=== PATIENT | female | born 2005 | race Two or more races ===

== ENCOUNTER 2024-06-14 18:08 | Emergency (ER) | payer MEDICAID, SELFPAY ==
[2024-06-14 18:11] VITALS: BP 108/71; PULSE 80; RESP 18; TEMP 37.6; O2SAT 96; BMI 17.5
--- NOTE | 2024-06-14 18:23 | PD.EDAMS ---
Altered Mental Status RME/HPI General Chief Complaint: Shortness of Breath/Dyspnea Stated Complaint: SUDDEN SOB Time Seen by Provider: 06/14/24 18:23 Arrival date/time: 06/14/24 18:08 RME / HPI RME / HPI narrative: This section includes all my notes and documentations, including HPI, PE, and ED course. Ferny Ballesteros MD HPI: 19-year-old female here to be evaluated with many concerns. She has cerebral palsy. Mom takes care of her at home. Mom reports increased confusion and fatigue and malaise for the past few days. Just prior to arrival, mom noted hypoxia. No obvious fever. Slight cough. No other complaints. ROS: All negative except as documented in HPI. Physical Exam: General: Alert. No acute distress when remaining still. Eyes: Conjunctivae and lids clear. EOMI. PERRL. ENT: No nasal congestion. Pharynx normal. Tympanic membrane normal bilaterally. Neck: Supple. Heart: RRR. Lungs: No respiratory distress. Good air movement with rales. Abdomen: Soft and nontender. Skin: Warm and dry. Neuro: Alert. Cranial Nerves II-XII grossly intact. No peripheral motor deficits. I reviewed all diagnostic test results. My interpretation of the EKG is sinus rhythm with no acute ST?T changes. My interpretation of the chest x-ray is bilateral infiltrates. Blood tests unremarkable. At this point, diagnoses include pneumonia. Treatment here included IV fluid, Toradol, Tylenol, Rocephin, and Zithromax. Significant improvement noted. Recommended a trial of treatment at home. Based on my best medical judgment, made decision no further evaluation or treatment indicated at this time. Patient (and mom) understands and agrees to the discharge instructions customized and printed, see below. Discharge instructions from Dr. Ballesteros: --Chelle has pneumonia. ?No exposure to smoking or pets or dust or cold or humidity. --Zithromax and cefdinir to kill the germs causing the pneumonia. --Prednisone to help decrease the swelling in the airways. --Tylenol and ibuprofen as needed. --See a private doctor next week if not completely better. --Seek immediate medical care with worsening or with any concerns. Ferny Ballesteros MD Related Data Home Medications ?Medication ?Instructions ?Recorded ?Confirmed albuterol sulfate 2.5 mg/3 mL 2.5 mg HHN QDAY #0 ea 05/29/14 (0.083 %) solution for nebulization budesonide 0.5 mg/2 mL suspension HHN QDAY #0 neb 05/29/14 for nebulization (Pulmicort) Previous Rx's ?Medication ?Instructions ?Recorded ibuprofen 100 mg/5 mL oral 300 mg (15 mL) PO Q6H #250 mL 09/03/20 suspension azithromycin 200 mg/5 mL oral 400 mg (10 mL) PO QDAY 3 days #30 06/14/24 suspension (Zithromax) mL cefdinir 125 mg/5 mL oral 300 mg (12 mL) PO BID 7 days #168 06/14/24 suspension mL prednisolone 15 mg/5 mL oral 45 mg (15 mL) PO DAILY 3 days #45 06/14/24 solution mL Allergies Allergy/AdvReac Type Severity Reaction Status Date / Time acetazolamide Allergy Unknown Verified 09/03/20 22:16 Course Quality Measures none Orders Category Date Time Status Bedside COVID-19 Antigen Test NOW Care 06/14/24 18:26 Completed Bedside Influenza A&B Antigen Test NOW Care 06/14/24 18:26 Completed EKG (ED ONLY) *Do not use* NOW Care 06/14/24 18:29 Completed Miscellaneous Nursing Order NOW Care 06/14/24 18:26 Completed Saline [Insert IV] NOW Care 06/14/24 18:26 Completed Straight [In and Out Catheter] X1 Care 06/14/24 18:26 Completed EKG (ED Only) Stat Exams 06/14/24 18:29 Draft XR chest 1V portable Stat Exams 06/14/24 18:29 Completed ABG [Arterial Blood Gas] Stat Lab 06/14/24 18:50 Completed BNP [B-Type Natriuretic Peptide] Stat Lab 06/14/24 19:07 Completed Blood Culture (Lab) Stat Lab 06/14/24 19:00 Received CBC Stat Lab 06/14/24 19:07 Completed CMP [Comprehensive Metabolic Panel] Stat Lab 06/14/24 19:07 Completed CRP [C-Reactive Protein] Stat Lab 06/14/24 19:07 Completed D-Dimer Stat Lab 06/14/24 19:07 Completed ESR [Sed Rate (ESR)] Stat Lab 06/14/24 19:07 Completed Free T4 (Free Thyroxine) Stat Lab 06/14/24 19:07 Completed Lactate (Lactic Acid) Stat Lab 06/14/24 19:07 Completed Magnesium Stat Lab 06/14/24 19:07 Completed Procalcitonin Stat Lab 06/14/24 19:07 Completed TSH [Thyroid Stimulating Hormone] Stat Lab 06/14/24 19:07 Completed Troponin I Stat Lab 06/14/24 19:07 Completed Acetaminophen Ivpb [Ofirmev Inj] Med 06/14/24 18:28 Discontinued 1,000 mg in 100 ml IV X1 Acetaminophen Ivpb [Ofirmev Inj] Med 06/15/24 00:00 Discontinued 1,000 mg in 60 ml IV Q6HR Azithromycin Inj [Zithromax Inj] 400 mg Med 06/14/24 20:15 Discontinued Sodium Chloride 0.9% 250 ml [Ns] 250 ml IV X1 Ketorolac Inj [Toradol Inj] Med 06/14/24 18:26 Discontinued 15 mg IVP X1 ONE Ketorolac Inj [Toradol Inj] Med 06/14/24 20:15 Discontinued 15 mg IVP X1 ONE Sodium Chloride 0.9% 1000 ml [Ns] 1,000 ml Med 06/14/24 18:26 Discontinued IV 999 mls/hr cefTRIAXone [Rocephin] 1,000 mg Med 06/14/24 18:26 Discontinued SODIUM CHLORIDE 0.9% (Popper) [Ns 0.9% (P)] 50 ml IV X1 Vital Signs Vital signs: Vital Signs Temperature 99.6 F 06/14/24 18:11 Pulse Rate 80 06/14/24 18:11 Respiratory Rate 18 06/14/24 18:11 Blood Pressure 108/71 06/14/24 18:11 Pulse Oximetry (%) 96 06/14/24 18:11 Oxygen Delivery Method Room Air 06/14/24 18:11 Altered Mental Status Patient data External records reviewed:: [facility] previous records Clinical information provided by:: patient, EMS and parent Social determinants that could affect healthcare access:: other (specify) (Cerebral palsy) Patient has the following chronic illnesses:: Cerebral palsy How is presenting disease/condition affected by chronic disease/condition?: exacerbated by Evaluation data The following diagnostics were reviewed and interpreted by me:: lab results, radiology exam(s) and EKG tracing(s) Lab and/or radiology exams considered but not ordered:: None Interpretation Summary: Pneumonia Medications / Prescriptions Medications or Prescriptions considered but not ordered:: None Medication administrations:: Medication Administration History Discontinued Medications Acetaminophen (Ofirmev Inj) 1,000 mg in 100 mls @ 250 mls/hr IV X1 ONE Stop: 06/14/24 18:51 Last Admin: 06/14/24 19:50 Dose: Not Given Documented By: PINOR Non-Admin Reason: Discontinued Ceftriaxone Sodium 1,000 mg/ (Sodium Chloride) 50 mls @ 100 mls/hr IV X1 ONE Stop: 06/14/24 18:55 Last Admin: 06/14/24 19:50 Dose: Not Given Documented By: PINOR Non-Admin Reason: Discontinued Sodium Chloride (Ns) 1,000 mls @ 999 mls/hr IV .Q1H1M ONE Stop: 06/14/24 19:26 Last Infusion: 06/14/24 21:04 Dose: Infused Documented By: Admin: 06/14/24 20:03 Dose: 999 mls/hr Documented By: ANNA Azithromycin 400 mg/ Sodium (Chloride) 250 mls @ 250 mls/hr IV X1 ONE Stop: 06/14/24 21:14 Last Admin: 06/14/24 21:22 Dose: 250 mls/hr Documented By: ANNA Acetaminophen (Ofirmev Inj) 1,000 mg in 60 mls @ 150 mls/hr IV Q6HR JOJO Stop: 06/15/24 18:23 Ketorolac Tromethamine (Ketorolac Inj 30 Mg/Ml Vial) 15 mg IVP X1 ONE Stop: 06/14/24 18:27 Last Admin: 06/14/24 19:50 Dose: Not Given Documented By: PINOR Non-Admin Reason: Discontinued Ketorolac Tromethamine (Ketorolac Inj 30 Mg/Ml Vial) 15 mg IVP X1 ONE Stop: 06/14/24 20:16 Last Admin: 06/14/24 22:03 Dose: 15 mg Documented By: DIAN IV fluid, Toradol, Tylenol, Rocephin, and Zithromax Consultations Consultation(s) initiated? (list below): No Diagnosis Differential diagnosis altered mental status: delirium, hypoglycemia, hyponatremia, sepsis and other (UTI, pneumonia, COVID, influenza) Most likely diagnosis given after review of the tests above:: Pneumonia Admission Indicated Admission indicated?: not indicated Explain why admission is indicated or not indicated:: With significant improvement, there was no indication for admission. Admission Request Was there a request for admission?: No Disposition Plan Disposition Plan: Discharge Discharge Attestation Discharge Attestation: The patient and all family members were given an opportunity to ask questions and understood the discharge instructions. Discharge instructions specifically effects, indications for sooner follow up or return to the emergency department, and the expected course of current diagnosis. Patient condition: Stable Discharge Plan Plan Patient Disposition: HOME (Self Care) Prescriptions/Referrals Prescriptions/Med Rec: New cefdinir 125 mg/5 mL suspension for reconstitution 300 mg PO BID 7 Days Qty: 168 0RF prednisolone 15 mg/5 mL solution 45 mg PO DAILY 3 Days Qty: 45 0RF azithromycin [Zithromax] 200 mg/5 mL suspension for reconstitution 400 mg PO QDAY 3 Days Qty: 30 0RF No Action albuterol sulfate 2.5 MG/3 ML solution for nebulization 2.5 mg HHN QDAY Qty: 0 budesonide [Pulmicort] 0.5 MG/2 ML suspension for nebulization HHN QDAY Qty: 0 ibuprofen 100 mg/5 mL suspension 300 mg PO Q6H Qty: 250 0RF Referrals: Sharon Samuel MD [Primary Care Provider] - In 1 week Problem List Clinical Impression: Community acquired pneumonia Patient/Caregiver Discharge Instructions Discharge Activity: activity as tolerated Education Materials: ED Pneumonia (Adult) Additional Instructions: Discharge instructions from Dr. Ballesteros: --Chelle has pneumonia. ?No exposure to smoking or pets or dust or cold or humidity. --Zithromax and cefdinir to kill the germs causing the pneumonia. --Prednisone to help decrease the swelling in the airways. --Tylenol and ibuprofen as needed. --See a private doctor next week if not completely better. --Seek immediate medical care with worsening or with any concerns. Print Language: Vietnamese Stand Alone Forms: Della Award Info., Patient Portal Info Letter
--- NOTE | 2024-06-14 18:29 | XR_ITS ---
Examination: AP chest single view Technique: AP supine portable chest single view Exam date and time: June 14, 2024 at 1853 hrs. Indications: Onset SOB today. Findings: Early bilateral perihilar pneumonia The film is rotated RPO Normal heart size Right ventricular peritoneal shunt tube Impression: Bilateral perihilar pneumonia
--- NOTE | 2024-06-14 18:29 | EKG_ITS ---
[facility] Test Date: 2024-06-14 Pat Name: CHAVA ALEX Department: Room: - Gender: Female Bronc Buster: : 2005 Requested By: Ferny Verduzco Order Number: [id number] Reading MD: Ferny Verduzco Measurements Intervals [place] Rate: 90 P: 41 RI: 157 QRS: 54 QRSD: 77 T: 32 QT: 355 QTc: 435 Interpretive Statements SINUS RHYTHM No previous ECG available for comparison /[id number]/S0/[id number]
[2024-06-14 18:35] VITALS: TEMP 37.1
[2024-06-14 18:54] LABS: Base Excess 3 (-3-3); HCO3 28 mEq/L (20-26); Inspired O2, VO2 Liters 2 L/min; Inspired Oxygen, FIO2 21 %; O2 Saturation 98 % (91-98); PCO2 44 mmHg (32.0-48.0); PO2 89 mmHg (83-108); pH, Arterial 7.42 (7.35-7.45)
[2024-06-14 18:57] VITALS: PULSE 92; RESP 20; O2SAT 94
[2024-06-14 18:57] LABS: Allen Test Performed/OK; Puncture Site Right Radial
[2024-06-14 19:12] LABS: Lactate (Lactic Acid) 0.7 mMol/L (0.4-2.0)
[2024-06-14 19:13] LABS: Basophils % (Auto) 0 % (0-2.5); Eosinophils % (Auto) 0 % (0-10); Hematocrit 34.4 % (36.0-46.0); Hemoglobin 10.6 g/dL (12.0-16.0); Immature Granulocytes % (Auto) 0 % (0-0); Immature Granulocytes Auto 0.01 Thou/mm3 (0.00-0.00); Lymphocytes # (Auto) 1.4 Thou/mm3 (1.0-4.8); Lymphocytes % (Auto) 22 % (10-50); Mean Corpuscular HGB Conc 30.8 g/dl (31.0-37.0); Mean Corpuscular Volume 78 fL (80-100); Monocytes # (Auto) 0.5 Thou/mm3 (0.0-0.8); Monocytes % (Auto) 8 % (0-12); Neutrophils # (Auto) 4.3 Thou/mm3 (1.8-7.7); Neutrophils % (Auto) 70 % (37-80); Nucleated Red Blood Cell % 0 /100 WBC (0); Platelet Count 185 Thou/mm3 (140-440); RDW Standard Deviation 43.8 fL (36.4-46.3); Red Blood Count 4.42 Miln/mm3 (4.00-5.20); White Blood Count 6.2 Thou/mm3 (3.6-11.0)
[2024-06-14 19:38] LABS: Sed Rate (ESR) 18 mm/hr (0-20)
[2024-06-14 19:43] LABS: B-Type Natriuretic Peptide < 20 pg/mL (0-100)
[2024-06-14 19:51] LABS: D-Dimer < 250 ng/mL (<600)
[2024-06-14] MEDS: SODIUM CHLORIDE 0.9% 1000 ML 1,000 ML 999 ML IV (20:03)
[2024-06-14 20:09] VITALS: BP 110/54; PULSE 94; RESP 17; O2SAT 95
[2024-06-14 21:22] LABS: Alanine Aminotransferase 14 U/L (10-49); Albumin, Serum 4.3 gm/dL (3.5-5.0); Albumin/Globulin Ratio 1.7 (1.2-2.2); Alkaline Phosphatase 123 U/L (46-116); Anion Gap 7 (7-16); Aspartate Amino Transferase 20 U/L (0-34); BUN/Creatinine Ratio 20 Ratio (12-20); Bilirubin,Total 0.3 mg/dL (0.3-1.2); Blood Urea Nitrogen 8 mg/dL (9-23); C-Reactive Protein < 0.5 mg/dL (0.0-0.9); Calcium 8.8 mg/dL (8.3-10.6); Calcium (Corrected) 8.8 mg/dL (8.5-10.1); Chloride 103 mMol/L (98-107); Creatinine (Component) 0.4 mg/dL (0.6-1.3); Estimated Creatinine Clearance 138.6 mL/min (>60); Free T4 (Free Thyroxine) 0.79 ng/dL (0.89-1.76); Globulin 2.6 gm/dL (2.3-3.5); Glucose 89 mg/dL (74-106); Osmolality,Calculated 269 (275-295); Potassium 4.2 mMol/L (3.4-5.1); Procalcitonin 0.06 ng/ml (0.0-0.49); Sodium 136 mMol/L (136-145); Thyroid Stimulating Hormone 0.46 uIU/mL (0.55-4.78); Total Protein 6.9 gm/dL (5.7-8.2); Troponin I < 0.002 ng/mL (0.0-0.045); eGFR > 60 See Note
[2024-06-14] MEDS: SODIUM CHLORIDE 0.9% IV (21:22)
[2024-06-14] MEDS: AZITHROMYCIN IV (21:22)
[2024-06-14] MEDS: KETOROLAC INJ 30 MG/ML VIAL 15 MG IVP (22:03)
[2024-06-14 22:23] VITALS: BP 103/71; PULSE 84; RESP 16; O2SAT 97
== END 2024-06-14 22:25 | disposition home or self-care (01) ==
PROVIDERS: Emergency Provider Emergency Medicine; PCP Family Medicine
DX: J18.9 Pneumonia, unspecified organism (principal)
CPT/HCPCS: 36415; 36600; 71045; 80053; 81001; 82803; 83605; 83735; 83880; 84145; 84439; 84443; 84484; 85025; 85379; 85652; 86140; 87040; 87400; 87634; 87651; 87811; 93005; 96360; 99284; J0456; J1885; J7030; J7050